=== PATIENT | female | born 1950 | race Caucasian/White ===

== ENCOUNTER 2022-02-08 14:34 | Outpatient (CLI) | payer MEDICARE | END 2022-02-08 14:35 | disposition home or self-care (01) | LOC: CSHMRI 14:34 | PROVIDERS: ATTEND Orthopaedic Surgery | DX: M24.812 Other specific joint derangements of left shoulder, not elsewhere classified (principal); M75.122 Complete rotator cuff tear or rupture of left shoulder, not specified as traumatic; M25.412 Effusion, left shoulder; M65.812 Other synovitis and tenosynovitis, left shoulder; S46.212A Strain of muscle, fascia and tendon of other parts of biceps, left arm, initial encounter; S43.432A Superior glenoid labrum lesion of left shoulder, initial encounter ==